=== PATIENT | male | born 1950 | race Caucasian/White ===

== ENCOUNTER → 2019-03-27 11:29 | Outpatient (BNVA) | payer MEDICARE, OTHER, SELFPAY | PROVIDERS: PCP Family Medicine; Visit Provider Family Medicine | DX: J44.9 Chronic obstructive pulmonary disease, unspecified (principal); W57.XXXA Bitten or stung by nonvenomous insect and other nonvenomous arthropods, initial encounter; E78.5 Hyperlipidemia, unspecified; L98.9 Disorder of the skin and subcutaneous tissue, unspecified | CPT/HCPCS: 80053; 80061; 85025; 86618; 86666; 86757 ==

== ENCOUNTER → 2019-08-21 15:35 | Outpatient (BNVA) | payer MEDICARE, OTHER, SELFPAY | PROVIDERS: PCP Family Medicine; Visit Provider Family Medicine | DX: R53.83 Other fatigue (principal); J20.9 Acute bronchitis, unspecified | CPT/HCPCS: 84403; 84443; 85025 ==

== ENCOUNTER → 2020-04-23 12:04 | Outpatient (BNVA) | payer MEDICARE, OTHER, SELFPAY | PROVIDERS: PCP Family Medicine; Visit Provider Family Medicine | DX: R07.89 Other chest pain (principal); F17.211 Nicotine dependence, cigarettes, in remission; Z90.2 Acquired absence of lung [part of] | CPT/HCPCS: 71046 ==

== ENCOUNTER → 2020-09-02 11:20 | Outpatient (BNVA) | payer MEDICARE, OTHER, SELFPAY | PROVIDERS: PCP Family Medicine; Visit Provider Nurse Practitioner Family | DX: M25.531 Pain in right wrist (principal) | CPT/HCPCS: 73090; 73110 ==

== ENCOUNTER → 2020-11-02 10:21 | Outpatient (BNVA) | payer MEDICARE, OTHER, SELFPAY | PROVIDERS: PCP Family Medicine; Visit Provider Nurse Practitioner Family | DX: J44.9 Chronic obstructive pulmonary disease, unspecified (principal); Z20.822 Contact with and (suspected) exposure to COVID-19 | CPT/HCPCS: 87635 ==

== ENCOUNTER → 2020-11-16 12:14 | Outpatient (BNVA) | payer MEDICARE, OTHER, SELFPAY | PROVIDERS: PCP Family Medicine; Visit Provider Family Medicine | DX: E78.5 Hyperlipidemia, unspecified (principal); R79.89 Other specified abnormal findings of blood chemistry; R07.89 Other chest pain; F41.9 Anxiety disorder, unspecified; N32.81 Overactive bladder | CPT/HCPCS: 80053; 80061; 84403; 84443 ==

== ENCOUNTER → 2020-12-09 10:04 | Outpatient (BNVA) | payer MEDICARE, OTHER, SELFPAY | PROVIDERS: PCP Family Medicine; Visit Provider Internal Medicine Pulmonary Disease | DX: R06.00 Dyspnea, unspecified (principal); E87.5 Hyperkalemia; Z20.822 Contact with and (suspected) exposure to COVID-19 | CPT/HCPCS: 80048; 87635 ==

== ENCOUNTER 2020-12-14 10:52 | Outpatient (CLI) | payer MEDICARE, OTHER, SELFPAY ==
--- NOTE | 2020-12-14 | USCV_ITS ---
Dobutamine Stress Echo Son Petersen Age: 70 Gender: M : 1950 Exam Date: 12/14/2020 13:43 Ordering Phys: Norman Lezama MD Technologist: CLARA Exam Location: [facility] [place] Indication: ARMIJO/FORMER SMOKER Rhythm: Other Patient History: Dyspnea/SOB FORMER SMOKER, LUNG REMOVAL Cardiac Medications: Medications in past 24 hours: Contrast: Optison Total Dose (mL): 8 Stress Results Protocol: Pharmacologic Peak Dose (???g/kg/min): Duration (min:sec): 9:55 Atropine:(mg) .1 Target HR: 129 Double Product: [id number] Resting HR: 67 Resting BP: 155 / 91 Peak HR: 143 Peak BP: 219 / 115 Max Predicted HR: 152 94 % Max Predicted HR Stress Summary: The hemodynamic response to stress was normal. The patient's target heart rate was achieved. BP Response: Normal Reason for Termination: The patients target heart rate was achieved Cardiac Symptoms: None ECG Analysis Resting EKG: Stress EKG: Arrhythmia: MEASUREMENTS (Male/Female) Normal Values FINDINGS 1. At the baseline, the patient's blood pressure was 155/91 mmHg with a heart rate of 68 beats per minute. The electrocardiogram showed normal sinus rhythm with normal ST-Ts. The chest examination revealed normal breath sounds with no rales or rhonchi. The CVS examination revealed normal heart sounds with no S3 or S4. 2. The Dobutamine was infused over 9 minutes 55 seconds . The patient was given a total of 1 mg of IV atropine for better heart rate response. The maximum heart rate obtained was 143 beats per minute. The patient attained 94% of the maximum predicted heart rate. The blood pressure at the end of the infusion was 199/87 mmHg. Patient did not have any chest pain or any significant electrocardiogram changes with the Dobutamine infusion. The physical examination remained unchanged. No arrhythmias were seen on the monitor. 3. At the baseline, the patient's echocardiogram revealed normal cardiac chamber sizes with normal LV ejection fraction of 65%. Segmental wall motion analysis revealed no regional wall motion abnormality. Abnormal septal motion. 4. With the low and the peak Dobutamine infusion, there was good augmentation of all the segments with no Dobutamine-induced wall motion abnormalities. 5. During the recovery phase, the patient did not have any symptoms or any EKG changes. The blood pressure at the end of the recovery phase was with a heart rate of per minute. 6. The echocardiogram during the recovery phase also did not reveal any new changes. CONCLUSIONS 1. Normal significant EKG changes with dobutamine infusion. 2. Normal echocardiographic response to Dobutamine infusion. Optison was used per protocol for the study. 3. No Dobutamine-induced chest pain. Frequent PVCs and PVCs and triplets noted during peak infusion. 4. Clinical correlation is recommended. Jing Charles MD (Electronically Signed) Final Date: 17 December 2020 14:10 S
[2020-12-14 12:57] VITALS: BMI 41.5
--- NOTE | 2020-12-14 13:04 | ECG_ITS ---
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 Interpretive Statements Name of study: Dobutamine stress echocardiogram Indication: Chest pain PROCEDURE: At the baseline, the blood pressure was 155/91 mmHg, oxygen saturation 93% with a heart rate of 68 bpm. The electrocardiogram showed sinus rhythm, normal axis. Incomplete right bundle branch block. Possible old inferior infarct. The dobutamine was infused over a period of 9 minutes 55 seconds. The maximum heart rate obtained was 143 (94% of the maximum predicted heart rate). The blood pressure at that time was 199/87 mmHg mmHg. The patient did not have any chest pain or any significant electrocardiogram changes with the dobutamine infusion. The physical examination remained unchanged. PVC triplets and frequent PVCs noted during dobutamine infusion. During the recovery phase, the patient did not have any specific symptoms. The blood pressure at the end of the recovery phase was 153/94 mmHg, oxygen saturation 90% with a heart rate of 71 beats per minute. Echocardiographic images were obtained at rest low and peak dobutamine infusion and in recovery. CONCLUSION: 1. No significant EKG changes with dobutamine infusion. 2. Normal blood pressure and heart rate response with dobutamine infusion. 3. Frequent PVC and PVCs in triplets noted at peak infusion. 4. Echocardiogram graphic images will be reported separately. Electronically Signed On 12-17-2020 13:09:10 CDT by Jing Charles M.D. [email or web address]).[email or web address] [facility].[employer]/store/OM/[id number]/[id number]
--- NOTE | 2020-12-14 13:46 | PFTS_ITS ---
Date of Study:12/14/20 Date of Dictation: MECHANICS: Forced vital capacity (FVC) is reduced. Forced expiratory volume in one second (FEV1) is reduced. FEV1/FVC is reduced. FLOW VOLUME LOOP: Reduced flow at all lung volumes with significant scooping. LUNG VOLUMES: Total lung capacity (TLC) is reduced. Residual volume (RV) is normal. DIFFUSING CAPACITY FOR CARBON MONOXIDE: Moderately reduced. INTERPRETATION: The prebronchodilator spirometry is consistent with severe to very severe obstruction. The patient also has a component of restrictive lung disease. Lung volumes are consistent with restrictive lung disease. Gas exchange (DLCO) is moderately reduced. MTDD
[2020-12-14] MEDS: DOBUTtamine 200 MG in sodium chloride 0.9% 34 ML 18 MG IV (13:49)
[2020-12-14] MEDS: atropine 0.1 mg/mL Syr 10 mL 0.5 MG IVP (13:58)
[2020-12-14] MEDS: metoprolol tartrate 1 mg/1 mL SDV 5 mL 5 MG IVP (14:05)
[2020-12-14] MEDS: perflutren protein-a microsphr 0.22 mg/mL SDV 3 mL IV (14:12)
[2020-12-14 14:15] VITALS: BP 153/94; PULSE 69
== END 2020-12-14 10:53 | disposition home or self-care (01) ==
LOC: CDL 10:59
PROVIDERS: PCP Family Medicine; Visit Provider Internal Medicine Pulmonary Disease
DX: R06.00 Dyspnea, unspecified (principal); Z87.891 Personal history of nicotine dependence; R07.9 Chest pain, unspecified; Z85.118 Personal history of other malignant neoplasm of bronchus and lung; Z98.890 Other specified postprocedural states; Z90.2 Acquired absence of lung [part of]
CPT/HCPCS: 93017; 93350; 93352; 94010; 94726; 94729; J0461; J1250; J3490; J7050; Q9956

== ENCOUNTER → 2021-10-12 14:01 | Outpatient (BNVA) | payer MEDICARE, OTHER, SELFPAY | PROVIDERS: PCP Family Medicine; Visit Provider Internal Medicine Pulmonary Disease | DX: R06.02 Shortness of breath (principal); J44.9 Chronic obstructive pulmonary disease, unspecified; G47.33 Obstructive sleep apnea (adult) (pediatric); R06.00 Dyspnea, unspecified; Z87.891 Personal history of nicotine dependence; T78.40XA Allergy, unspecified, initial encounter; R53.81 Other malaise | CPT/HCPCS: 82785; 85025; 86003 ==

== ENCOUNTER 2021-11-29 06:00 | Outpatient (RCR) | payer MEDICARE, OTHER, SELFPAY | END 2021-12-09 23:59 | disposition home or self-care (01) | LOC: TPT 06:00 | PROVIDERS: PCP Family Medicine; Visit Provider Internal Medicine Pulmonary Disease | DX: R53.81 Other malaise (principal); R06.00 Dyspnea, unspecified; J44.9 Chronic obstructive pulmonary disease, unspecified | CPT/HCPCS: 97110; 97163 ==

== ENCOUNTER 2021-12-10 06:00 | Outpatient (RCR) | payer MEDICARE, OTHER, SELFPAY | END 2022-01-09 23:59 | disposition home or self-care (01) | LOC: TPT 06:00 | PROVIDERS: PCP Family Medicine; Visit Provider Internal Medicine Pulmonary Disease | DX: R53.81 Other malaise (principal); R06.00 Dyspnea, unspecified; J44.9 Chronic obstructive pulmonary disease, unspecified | CPT/HCPCS: 97110 ==

== ENCOUNTER 2022-01-10 06:00 | Outpatient (RCR) | payer MEDICARE, SELFPAY | END 2022-02-08 23:59 | disposition home or self-care (01) | LOC: TPT 06:00 | PROVIDERS: PCP Family Medicine; Visit Provider Internal Medicine Pulmonary Disease | DX: R53.81 Other malaise (principal); R06.00 Dyspnea, unspecified; J44.9 Chronic obstructive pulmonary disease, unspecified | CPT/HCPCS: 97110 ==

== ENCOUNTER 2022-02-09 06:00 | Outpatient (RCR) | payer MEDICARE, SELFPAY | END 2022-02-28 23:59 | disposition home or self-care (01) | LOC: TPT 06:00 | PROVIDERS: PCP Family Medicine; Visit Provider Internal Medicine Pulmonary Disease | DX: R53.81 Other malaise (principal); R06.00 Dyspnea, unspecified; J44.9 Chronic obstructive pulmonary disease, unspecified | CPT/HCPCS: 97110 ==

== ENCOUNTER 2022-10-04 16:34 | Emergency (ER) | payer MEDICARE, SELFPAY ==
[2022-10-04 17:00] VITALS: BP 170/97; PULSE 94; RESP 14; TEMP 37.1; O2SAT 95; BMI 40.1
--- NOTE | 2022-10-04 17:16 | XRR_ITS ---
PROCEDURE INFORMATION: Exam: XR Chest Exam date and time: 10/04/2022 5:21 PM Age: 71 years old Clinical indication: Other: Afib; Prior surgery; Surgery date: 6+ months; Surgery type: Lung removal 2002; Additional info: New onset a fib TECHNIQUE: Imaging protocol: Radiologic exam of the chest. Views: 1 view. COMPARISON: CT chest con [id number] 03/02/2021 8:37 AM FINDINGS: Lungs: Left pneumonectomy with complete opacification of the left hemithorax. Right upper lobe calcified granuloma. The right lung is otherwise clear with emphysematous changes. Pleural spaces: Unremarkable. No pleural effusion. No pneumothorax. Heart/Mediastinum: Leftward deviation of the heart and mediastinum. Numerous mediastinal clips. Bones/joints: Unremarkable. XR/XR chest 1V portable [id number] IMPRESSION: No acute findings.
[2022-10-04 18:04] VITALS: BP 159/121; PULSE 89; RESP 20; O2SAT 95
--- NOTE | 2022-10-04 18:06 | ECG_ITS ---
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 Measurements Intervals [place] Rate: 89 P: 0 IA: 0 QRS: 50 QRSD: 121 T: -8 QT: 402 QTc: 490 Interpretive Statements ATRIAL FIBRILLATION WITH ABERRANT CONDUCTION OR VENTRICULAR PREMATURE COMPLEXES RIGHT BUNDLE BRANCH BLOCK [120+ ms QRS DURATION, UPRIGHT V1, 40+ ms S IN I/aVL/V4/V5/V6] No previous ECG available for comparison Electronically Signed On 10-04-2022 20:31:32 CDT by Shanta Lainez M.D. [email or web address] hospital [place].CLARED/store/OM/[id number]/[id number]
--- NOTE | 2022-10-04 18:25 | W.ED.GENADLT ---
HPI - General Adult General: Chief complaint: General Medical Stated complaint: afib Time Seen by Provider: 10/04/22 17:16 History of Present Illness: Presents to the ER from his family physician's office for swelling of his legs and new onset atrial fibrillation. Over the past month patient has noticed his bilateral lower extremities have become edematous and has become more short of breath tired fatigued than normal. To the point of getting dizzy if he moves gets up or down too fast. Patient has left lung removed back in 2002 and has had to wear 2 L of oxygen as needed since then. Patient denies any symptoms at this time other than the swelling and the fatigue. Patient is in no pain. Patient arrived on room air satting 88% on 2 L his sat went up to 96%. Patient is lying in bed comfortably Review of Systems General: Reports: 10 or more systems reviewed and unremarkable except in HPI and below PFSH ED PFSH: Medical History COPD (chronic obstructive pulmonary disease) Diverticulosis History of lung cancer Hyperlipidemia Obstructive sleep apnea treated with BiPAP Surgical History H/O arthroscopic knee surgery History of pneumonectomy Family History Other Cancer Social History Smoking and tobacco status: former smoker Quit status (tobacco): has quit using tobacco Year quit tobacco: 2002 Former quit date comment: 1.5-2ppd x 30 years Second hand smoke exposure: Yes Alcohol intake: current Alcohol intake frequency: holidays/special occasions only Substance/Drug Use: never Household members: spouse Marital status: Physical Exam Const: COMMON NORMALS: no acute distress, average body habitus, patient oriented x3, no limitations, healthy appearing, alert and well nourished HENMT: COMMON NORMALS: normocephalic, atraumatic, hearing grossly normal bilaterally, external ears normal, Normal external nose present and moist oral mucous membranes HEAD & SCALP: normocephalic and atraumatic NOSE: Normal external nose present EXTERNAL EAR: Yes external ears normal Eye: COMMON NORMALS: Equal, round and reactive pupils present, EOMs intact bilaterally, conjunctivae normal and no scleral icterus CONJUNCTIVA: Yes conjunctivae normal PUPIL: Yes Equal, round and reactive pupils present Neck/C-Spine: COMMON NORMALS: full ROM, no lymphadenopathy, supple, no meningeal signs, no JVD and Thyroid normal THYROID: Thyroid normal Chest: COMMONS NORMALS: normal inspection of the chest and normal palpation of entire chest wall Resp: COMMON NORMALS: normal respiratory effort, No retractions, No use of accessory muscles and clear to auscultation bilaterally (On the right side) AUSCULTATION: clear to auscultation bilaterally (On the right side) Cardio: COMMON NORMALS: no JVD, regular rate, S1 normal heart sound present and No gallops present (Cardio); negative for regular rhythm (Irregularly irregular rhythm) RATE: regular rate RHYTHM: abnormal rhythm (Irregularly irregular rhythm) HEART SOUNDS: S1 normal heart sound present GI: COMMON NORMALS: Normal to inspection, nondistended, normoactive bowel sounds present, Soft to palpation, non-tender, No hepatosplenomegaly present and no masses PALPATION: Yes Soft to palpation and Yes No hepatosplenomegaly present : COMMON NORMALS: Yes no CVA tenderness BLADDER/KIDNEY EXAM: Yes no CVA tenderness Back/Pelvis: COMMON NORMALS: no CVA tenderness Extremity: NARRATIVE EXTREMITY EXAM: 1-2+ pitting edema bilateral lower pretibial region. Neuro: COMMON NORMALS: patient oriented x3 SENSORIUM/ORIENTATION: Yes alert MENINGEAL SIGNS: Yes no meningeal signs Course Vital Signs: Vital signs: Vital Signs Temperature 98.7 F 10/04/22 17:00 Pulse Rate 85 10/04/22 20:00 Respiratory Rate 21 H 10/04/22 20:00 Blood Pressure 167/119 10/04/22 20:00 Pulse Oximetry 98 10/04/22 20:00 Oxygen Delivery Me thod Room Air 10/04/22 17:00 MDM - General Adult Medical Decision Making Presents to the ER with new onset A-fib. Physical exam was performed lab work was obtained. EKG did show A-fib in both EKGs. Otherwise lab work was essentially benign. Patient be started on Xarelto and a consult for case management to referral for cardiology. Patient be discharged home Differential Diagnosis New onset A-fib, CHF, edema Medical Records I reviewed the patient's medical records. Lab Data I reviewed the patient's lab results. 10/04/22 18:02 10/04/22 18:02 Radiology Impressions Chest X-Ray 10/04/22 17:16 IMPRESSION: No acute findings. Laboratory Results WBC 5.1 10^3/uL (4.0-10.0) 10/04/22 18:02 RBC 5.09 10^6/uL (4.1-5.3) 10/04/22 18:02 Hgb 15.1 g/dL (11.7-16.6) 10/04/22 18:02 Hct 49.7 % (42.0-52.0) 10/04/22 18:02 MCV 97.6 fl (80-94) H 10/04/22 18:02 MCH 29.7 pg (28.0-34.0) 10/04/22 18:02 MCHC 30.4 g/dL (30.0-36.0) 10/04/22 18:02 RDW 14.6 % (12.1-15.1) 10/04/22 18:02 Plt Count 131 10^3/cmm (130-400) 10/04/22 18:02 MPV 10.8 fL (7.4-10.4) H 10/04/22 18:02 Neut % (Auto) 65.1 % 10/04/22 18:02 Lymph % (Auto) 19.6 % 10/04/22 18:02 [place] % (Auto) 10.7 % 10/04/22 18:02 Eos % (Auto) 3.4 % 10/04/22 18:02 Baso % (Auto) 0.8 % 10/04/22 18:02 Neut # (Auto) 3.30 10^3/uL (1.8-7.7) 10/04/22 18:02 Lymph # (Auto) 1.0 10^3/uL (0.8-4.8) 10/04/22 18:02 Churchill # (Auto) 0.5 10^3/uL (0.2-0.9) 10/04/22 18:02 Eos # (Auto) 0.2 10^3/uL (0.0-0.8) 10/04/22 18:02 Baso # (Auto) 0.0 10^3/uL (0.0-0.1) 10/04/22 18:02 Nucleated RBC % (auto) 0 % 10/04/22 18: Nucleated RBCs # 0.0 /100WBC 10/04/22 18:02 PT 13.60 SECONDS (12.1-14.9) 10/04/22 18:02 INR 1.01 (0.8-1.2) 10/04/22 18:02 Sodium 138 mmol/L (136-145) 10/04/22 18:02 Potassium 4.6 mmol/L (3.5-5.1) 10/04/22 18:02 Chloride 104 mmol/L (98-107) 10/04/22 18:02 Carbon Dioxide 25 mmol/L (22-29) 10/04/22 18:02 Anion Gap 13.6 (5-19) 10/04/22 18:02 BUN 13 mg/dL (8-23) 10/04/22 18:02 Creatinine 0.9 mg/dL (0.7-1.2) 10/04/22 18:02 GFR Calculation 83.7 mL/min (90-130) L 10/04/22 18:02 Glucose 96 mg/dL (65-115) 10/04/22 18:02 Calculated Osmolality 286 mOsm/kg (285-295) 10/04/22 18:02 Calcium 8.6 mg/dL (8.5-10.5) 10/04/22 18:02 Magnesium 1.9 mg/dL (1.7-2.3) 10/04/22 18:02 Total Bilirubin 0.9 mg/dL (0.15-1.2) 10/04/22 18:02 AST 28 U/L (0-40) 10/04/22 18:02 ALT 20 U/L (0-41) 10/04/22 18:02 Alkaline Phosphatase 112 U/L (40-130) 10/04/22 18:02 Troponin T Baseline 18 ng/L (0-15) H 10/04/22 18:02 Troponin T 120 Minute 18.99 ng/L (0-15) H 10/04/22 20:06 Delta Troponin T 0.99 ABS# (0-10) 10/04/22 20:06 NT-Pro-B Natriuret Pep 2167 pg/mL (0-125) H 10/04/22 18:02 Total Protein 6.9 g/dL (6.6-8.7) 10/04/22 18:02 Albumin 3.6 g/dL (3.5-5.2) 10/04/22 18:02 Globulin 3.3 g/dL (1.3-4.6) 10/04/22 18:02 TSH 2.43 uIU/mL (0.27-4.20) 10/04/22 18:02 Urine Color Yellow (Yellow) 10/04/22 18:02 Urine Appearance Clear (CLEAR) 10/04/22 18:02 Urine pH 7 (5-7) 10/04/22 18:02 Ur Specific [place] 1.015 (1.005-1.030) 10/04/22 18:02 Urine Protein Trace (Negative) 10/04/22 18:02 Urine Glucose (UA) Norm (Normal) 10/04/22 18:02 Urine Ketones Negative (Negative) 10/04/22 18:02 Urine Blood Neg (Negative) 10/04/22 18:02 Urine Nitrate Negative (Negative) 10/04/22 18:02 Urine Bilirubin Neg (Negative) 10/04/22 18:02 Urine Urobilinogen Norm mg/dL (Negative) 10/04/22 18:02 Ur Leukocyte Esterase Negative (Negative) 10/04/22 18:02 Urine RBC 0-4 /hpf (0-2) H 10/04/22 18:02 Urine WBC 0-4 /hpf (0-5) H 10/04/22 18:02 Ur Squamous Epith Cells 0-4 /hpf (0-5) H 10/04/22 18:02 Amorphous Sediment Not Reportable 10/04/22 18:02 Urine Bacteria None /hpf (NONE) 10/04/22 18:02 Urine Mucus 1+ /hpf 10/04/22 18:02 Urine Opiates Screen Negative ng/mL (Negative) 10/04/22 18:02 Ur Barbiturates Screen Negative ng/mL (Negative) 10/04/22 18:02 Ur Phencyclidine Scrn Negative ng/mL (Negative) 10/04/22 18:02 Ur Amphetamines Screen Negative ng/mL (Negative) 10/04/22 18:02 U Benzodiazepines Scrn Negative ng/mL (Negative) 10/04/22 18:02 Urine Cocaine Screen Negative ng/mL (Negative) 10/04/22 18:02 U Marijuana (THC) Screen Negative ng/mL (Negative) 10/04/22 18:02 EKG Data EKG 1: I personally reviewed and interpreted this EKG as follows: EKG interpretation date: 10/04/22 EKG interpretation time: 18:06 Prior EKG tracings: not available for review Interpretation: EKG shows atrial fibrillation with aberrant conduction or ventricular premature complexes, right bundle branch block, ventricular rate of 89 bpm, QRS duration 121, QTc of 449, Computer generated interpretation: Chest X-Ray 10/04/22 17:16 IMPRESSION: No acute findings. Discharge Plan Discharge Patient Disposition: Home Clinical Impression: Atrial fibrillation Qualifiers: Atrial fibrillation type: unspecified Qualified Code(s): I48.91 - Unspecified atrial fibrillation Condition: Stable Prescriptions: New Xarelto 20 mg tablet 20 mg PO DAILY Qty: 30 0RF Rx Instructions: must administer with evening meal No Action testosterone cypionate 200 mg/mL kit 200 mg IM .monthly Qty: 1 5RF aspirin [Adult Low Dose Aspirin] 81 mg tablet,delayed release (DR/EC) 81 mg PO QDAY Trelegy Ellipta 100-62.5-25 mcg blister with device 1 inh INHALATION QDAY Qty: 90 2RF valsartan-hydrochlorothiazide [Diovan HCT] 160-25 mg tablet 1 tab PO DAILY Qty: 30 3RF albuterol sulfate 2.5 mg /3 mL (0.083 %) solution for nebulization 2.5 mg INHALATION QID PRN (Reason: shortness of breath or wheezing) Qty: 180 5RF clonazepam 0.5 mg tablet 0.5 mg PO DAILY PRN (Reason: anxiety) Qty: 30 1RF montelukast [Singulair] 10 mg tablet 10 mg PO DAILY Qty: 30 11RF albuterol sulfate [Ventolin HFA] 90 mcg/actuation HFA aerosol inhaler 2 puff INHALATION QID PRN (Reason: shortness of breath or wheezing) Qty: 8.5 3RF solifenacin 10 mg tablet See Rx Instructions .ROUTE .COMPLEX Qty: 30 0RF Dose Instruction: Take 1 tablet by mouth once daily Rx Instructions: Take 1 tablet by mouth once daily Discharge Orders: Discharge ED (Routine); Ordered 10/04/22 Ordered By: Freddy Díaz Referrals: Nelsy Rivas MD [Primary Care Provider] - 1 week Patient Instructions: A-fib (Atrial Fibrillation) (ED) Activity Restrictions/Additional Instructions: Please take all medicine as prescribed. You have been referred to case management to set you up an appointment with cardiology. They should be calling you sometime tomorrow or the next day. If you not heard from them by Sunday please give them a call. 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
[2022-10-04 18:27] LABS: Add Urine Microscopic? YES; Amphetamines Screen Urine Negative (Negative); Barbiturates Screen Urine Negative (Negative); Benzodiazepines Screen Urine Negative (Negative); Bilirubin Urine Neg (Negative); Blood Urine Neg (Negative); Cocaine Screen Urine Negative (Negative); Glucose Urine UA Norm (Normal); Ketones Urine Negative (Negative); Leukocyte Esterase Urine Negative (Negative); Nitrate Urine Negative (Negative); Opiate Screen Urine Negative (Negative); PCP Screen Urine Negative (Negative); Protein Urine Trace (Negative); Specific Gravity, Urine 1.015 (1.005-1.030); THC Screen Urine Negative (Negative); Urine Appearance Clear (CLEAR); Urine Color Yellow (Yellow); Urobilinogen Urine Norm (Negative); pH Urine 7 (5-7)
[2022-10-04 18:28] LABS: Add Urine Culture? No; Basophils % 0.8 %; Eosinophils # 0.2 10^3/uL (0.0-0.8); Eosinophils % 3.4 %; Hematocrit 49.7 % (42.0-52.0); Hemoglobin 15.1 g/dL (11.7-16.6); Lymphocytes % 19.6 %; Mean Corpuscular HGB Conc 30.4 g/dL (30.0-36.0); Mean Corpuscular Hemoglobin 29.7 pg (28.0-34.0); Mean Corpuscular Volume 97.6 fl (80-94); Mean Platelet Volume 10.8 fL (7.4-10.4); Monocytes # 0.5 10^3/uL (0.2-0.9); Monocytes % 10.7 %; Mucus Urine 1+ /hpf; Neutrophils % 65.1 %; Nucleated Red Blood Cells % 0 %; Platelet Count 131 10^3/cmm (130-400); RBC Urine 0-4 /hpf (0-2); Red Blood Count 5.09 10^6/uL (4.1-5.3); Red Cell Distribution Width 14.6 % (12.1-15.1); Squamous Epithelial Cell Urine 0-4 /hpf (0-5); WBC Urine 0-4 /hpf (0-5); White Blood Count 5.1 10^3/uL (4.0-10.0)
[2022-10-04 18:35] LABS: INR 1.01 (0.8-1.2)
[2022-10-04 18:44] LABS: Troponin(5th) Baseline 18 ng/L (0-15)
[2022-10-04 18:52] LABS: Alanine Aminotransferase 20 U/L (0-41); Albumin Level 3.6 g/dL (3.5-5.2); Alkaline Phosphatase 112 U/L (40-130); Anion Gap 13.6 (5-19); Aspartate Amino Transferase 28 U/L (0-40); Blood Urea Nitrogen 13 mg/dL (8-23); Calcium 8.6 mg/dL (8.5-10.5); Carbon Dioxide 25 mmol/L (22-29); Chloride 104 mmol/L (98-107); Globulin 3.3 g/dL (1.3-4.6); Glomerular Filtration Rate 83.7 mL/min (90-130); Glucose 96 mg/dL (65-115); Magnesium 1.9 mg/dL (1.7-2.3); NT Pro B Type Natriuretic Pept 2167 pg/mL (0-125); Osmolality Calculated 286 mOsm/kg (285-295); Potassium 4.6 mmol/L (3.5-5.1); Sodium 138 mmol/L (136-145); Thyroid Stimulating Hormone 2.43 uIU/mL (0.27-4.20); Total Bilirubin 0.9 mg/dL (0.15-1.2); Total Protein 6.9 g/dL (6.6-8.7)
[2022-10-04 19:00] VITALS: BP 162/118; PULSE 83; RESP 27; O2SAT 94
[2022-10-04 20:00] VITALS: BP 167/119; PULSE 85; RESP 21; O2SAT 98
[2022-10-04 20:38] LABS: Troponin 5 2HR 18.99 ng/L (0-15)
[2022-10-04 20:41] LABS: Troponin 5 2HR Delta 0.99 ABS# (0-10)
[2022-10-04] MEDS: rivaroxaban 10 mg Tablet 20 MG PO (21:20)
[2022-10-04 21:25] VITALS: BP 164/113; PULSE 82; RESP 23; O2SAT 96
--- NOTE | 2022-10-05 05:47 | DCPLANNER ---
Addendum entered by Alice Baumann 11/06/22 16:03: Patient attended appointment scheduled with heart care Addendum entered by Alice Baumann 10/09/22 07:25: Patient has a follow up appointment scheduled for Sunday, November 01, 2022 at 9:[address] Charles at [facility]. Original Note: manager telemetry had message to schedule a follow up appointment for patient with cardiology. manager telemetry sent patients information to the front office staff at [facility]. Patients information will be printed and reviewed. Clinic will call patient with appointment information.
== END 2022-10-04 21:28 | disposition home or self-care (01) ==
PROVIDERS: Emergency Provider Emergency Medicine; PCP Family Medicine
DX: I48.91 Unspecified atrial fibrillation (principal); I45.10 Unspecified right bundle-branch block; J44.9 Chronic obstructive pulmonary disease, unspecified; E78.5 Hyperlipidemia, unspecified; G47.33 Obstructive sleep apnea (adult) (pediatric); Z79.899 Other long term (current) drug therapy
CPT/HCPCS: 36415; 71045; 80053; 80061; 80306; 81001; 83735; 83880; 84403; 84443; 84484; 85025; 85610; 93005; 99285; G0103

== ENCOUNTER → 2022-10-16 10:08 | Outpatient (BNVA) | payer MEDICARE, SELFPAY | PROVIDERS: PCP Family Medicine; Visit Provider Surgery | DX: Z12.11 Encounter for screening for malignant neoplasm of colon (principal); Z12.12 Encounter for screening for malignant neoplasm of rectum | CPT/HCPCS: 99024; 99203 ==

== ENCOUNTER 2022-10-23 15:39 | Outpatient (CLI) | payer MEDICARE, SELFPAY ==
--- NOTE | 2022-10-23 17:00 | CT_ITS ---
WS: [id number] LDCT LUNG CANCER SCREENING HISTORY: Z85.118 - Personal history of other malignant neoplasm TECHNIQUE: Axial imaging performed from the apices to 1 cm below the costophrenic angles. Coronal and sagittal reformats are submitted with axial MIP series. All CT scans at [facility] use at least one of these dose optimization techniques: automated exposure control; mA and/or kV adjustment per patient size (includes targeted exams where dose is matched to clinical indication); or iterativ e reconstruction. DLP: 151.60 mGy.cm DIvol: Mean CTDIvol: 3.70 (mGy) COMPARISON: 03/02/2021 Diagnostic quality: Satisfactory Lungs: Patient is status post left pneumonectomy. Post pneumonectomy pleural fluid collection is billy lar in size compared to 03/01/2021. No pulmonary nodule or mass noted in the right lung. Benign granu yovany right upper lobe. No endobronchial lesions are identified. Numerous surgical clips are noted at the left hilum from the prior pneumonectomy. Heart: Mild enlargement of the heart. Heart is deviated to the left due to volume loss in the left th orax.. Other findings: Mild enlargement of the pulmonary artery. Mild gynecomastia. No mediastinal or hilar adenopathy identified on this unenhanced exam. No adrenal mass. Increase in thoracic kyphosis. Mild d egenerative disc disease and thoracic osteophytosis. IMPRESSION: CT/CT lung screening [id number] LUNG-RADS: 2-Benign Appearance or Behavior FOLLOW UP: 12 Month: Continue annual screening with LDCT OTHER FINDINGS (S MODIFIER): None.
== END 2022-10-23 15:40 | disposition home or self-care (01) ==
LOC: RAD 15:40
PROVIDERS: PCP Family Medicine; Visit Provider Family Medicine
DX: Z85.118 Personal history of other malignant neoplasm of bronchus and lung (principal); Z12.2 Encounter for screening for malignant neoplasm of respiratory organs
CPT/HCPCS: 71271

== ENCOUNTER → 2022-11-01 09:19 | Outpatient (BNVA) | payer MEDICARE, SELFPAY | PROVIDERS: PCP Family Medicine; Visit Provider Internal Medicine Cardiovascular Disease | DX: R60.9 Edema, unspecified (principal); I10 Essential (primary) hypertension; R06.09 Other forms of dyspnea; I48.91 Unspecified atrial fibrillation; Z87.891 Personal history of nicotine dependence; E78.5 Hyperlipidemia, unspecified; G47.33 Obstructive sleep apnea (adult) (pediatric); J44.9 Chronic obstructive pulmonary disease, unspecified; Z79.01 Long term (current) use of anticoagulants | CPT/HCPCS: 99204 ==

== ENCOUNTER → 2022-11-07 08:46 | Outpatient (BNVA) | payer MEDICARE, SELFPAY | PROVIDERS: PCP Family Medicine; Visit Provider Internal Medicine Cardiovascular Disease | DX: I48.91 Unspecified atrial fibrillation (principal); R07.89 Other chest pain; R60.9 Edema, unspecified | CPT/HCPCS: 80048; 83735; 83880 ==

== ENCOUNTER 2022-11-20 12:00 | Outpatient (CLI) | payer MEDICARE, SELFPAY | END 2022-11-20 12:01 | disposition home or self-care (01) | LOC: SLEEP 12-04 08:09 | PROVIDERS: PCP Family Medicine; Visit Provider Internal Medicine Pulmonary Disease | DX: G47.33 Obstructive sleep apnea (adult) (pediatric) (principal); R53.83 Other fatigue | CPT/HCPCS: 94762 ==

== ENCOUNTER 2022-11-20 12:54 | Outpatient (CLI) | payer MEDICARE, SELFPAY ==
--- NOTE | 2022-11-20 12:30 | USCV_ITS ---
Son Petersen Age: 71 Gender: M : 1950 Exam Date: 11/20/2022 13:12 Ordering Phys: Jing Charles MD ([email or web address]) Technologist: Thalia Hughes Exam Location: [facility] [place] Indication: a fib BP: 110 / 75 HR: 72 Rhythm: Atrial fibrillation Technical Quality: Adequate MEASUREMENTS (Male / Female) Normal Values 2D ECHO LV Diastolic Diameter PLAX 4.5 cm 4.2 - 5.9 / 3.9 - 5.3 cm LV Systolic Diameter PLAX 3.1 cm IVS Diastolic Thickness 0.9 cm 0.6 - 1.0 / 0.6 - 0.9 cm IVS Systolic Thickness 1.5 cm LVPW Diastolic Thickness 1.3 cm 0.6 - 1.0 / 0.6 - 0.9 cm LVPW Systolic Thickness 1.9 cm LVOT Diameter 2.1 cm LV Ejection Fraction 2D Teich 60.3 % LV Ejection Fraction MOD 2C 64.9 % LV Ejection Fraction 2C AL 66.2 % LA Diameter 5.5 cm LA Width 3.8 cm LA Height 6.1 cm RA Width 3.2 cm RA Height 6.2 cm Aorta at Sinotubular Diameter 2.7 cm M-MODE Aortic Annulus Diameter 2.9 cm LA Ao Ratio MM 1.9 MV E Point Septal Separation 0.5 cm DOPPLER AV Peak Velocity 105.0 cm/s LVOT Peak Velocity 81.0 cm/s AV Area Cont Eq vti 2.2 cm squared AV Area Cont Eq pk 2.7 cm squared MV Peak Velocity 113.0 cm/s MV Area PHT 5.4 cm squared Mitral E to A Ratio 6.1 MV E' Velocity 60.0 cm/s Mitral E to MV E' Ratio 7.8 Mitral E to LV E' Lateral Ratio 6.9 Mitral E to LV E' Septal Ratio 9.0 TR Peak Velocity 157.0 cm/s TR Peak Gradient 9.9 mmHg Right Atrial Pressure 5.0 mmHg Pulmonary Artery Systolic Pressu 14.9 mmHg PV Peak Velocity 84.0 cm/s RV Acceleration Time 0.1 s RV Ejection Time 0.3 s RV AcT/ET 0.5 FINDINGS Left Ventricle Normal left ventricular size, systolic function and wall thickness, with no regional wall motion abnormalities. Left ventricular ejection fraction is estimated at 60 %. Right Ventricle Normal right ventricular size and systolic function. Right ventricular systolic pressure 14.9 mmHg. Right Atrium Normal right atrial size. Left Atrium Mildly increased left atrial size. Mitral Valve Mildly thickened mitral valve. No mitral valve stenosis. Mild mitral valve regurgitation. Aortic Valve Structurally normal trileaflet aortic valve. No aortic valve stenosis. No aortic valve regurgitation. Tricuspid Valve Structurally normal tricuspid valve. No tricuspid valve stenosis. Trace to mild tricuspid valve regurgitation. Pulmonic Valve Structurally normal pulmonic valve. No pulmonary valve stenosis. No pulmonary valve regurgitation. Pericardium No pericardial effusion. Aorta Normal size aortic root and proximal ascending aorta. IVC Inferior vena cava not visualized. CONCLUSIONS 1. Normal left ventricular size, systolic function and wall thickness, with no regional wall motion abnormalities. Left ventricular ejection fraction is estimated at 60 %. 2. Mild mitral valve regurgitation. 3. No prior similar studies to compare. Jing Charles MD (Electronically Signed) Final Date: 26 November 2022 08:01 S
== END 2022-11-20 12:55 | disposition home or self-care (01) ==
LOC: RAD 12:55
PROVIDERS: PCP Family Medicine; Visit Provider Internal Medicine Cardiovascular Disease
DX: I48.91 Unspecified atrial fibrillation (principal); I10 Essential (primary) hypertension; I34.0 Nonrheumatic mitral (valve) insufficiency
CPT/HCPCS: 93306

== ENCOUNTER 2022-12-25 14:37 | Outpatient (CLI) | payer MEDICARE, SELFPAY ==
--- NOTE | 2022-12-25 14:47 | XRR_ITS ---
PROCEDURE INFORMATION: Exam: XR Right Hip Exam date and time: 12/25/2022 3:06 PM Age: 72 years old Clinical indication: Pain and injury or trauma; Fall; Blunt trauma (contusions or hematomas); Hip pain; Right hip; Injury date: 12/23/22; Injury details: HX of lung cancer; Additional info: M25.551 - pain in right hip TECHNIQUE: Imaging protocol: Radiologic exam of the right hip. Views: 1 view hip with pelvis when performed. COMPARISON: No relevant prior studies available. FINDINGS: Bones/joints: Mild hip DJD. No fracture is seen. Soft tissues: Unremarkable. XR/XR hip RT 2-3V wo/w pel* [id number] IMPRESSION: No acute findings.
== END 2022-12-25 14:38 | disposition home or self-care (01) ==
LOC: RAD 14:40
PROVIDERS: PCP Family Medicine; Visit Provider Family Medicine
DX: M25.551 Pain in right hip (principal)
CPT/HCPCS: 73502

== ENCOUNTER → 2023-01-24 14:25 | Outpatient (BNVA) | payer MEDICARE, SELFPAY | PROVIDERS: PCP Family Medicine; Visit Provider Internal Medicine Cardiovascular Disease | DX: I11.0 Hypertensive heart disease with heart failure (principal); I50.30 Unspecified diastolic (congestive) heart failure; R60.9 Edema, unspecified; E78.5 Hyperlipidemia, unspecified; G47.33 Obstructive sleep apnea (adult) (pediatric); J44.9 Chronic obstructive pulmonary disease, unspecified; Z87.891 Personal history of nicotine dependence | CPT/HCPCS: 99214 ==

== ENCOUNTER → 2023-07-10 16:02 | Outpatient (BNVA) | payer MEDICARE, SELFPAY | PROVIDERS: PCP Family Medicine; Visit Provider Family Medicine | DX: I10 Essential (primary) hypertension (principal); E78.5 Hyperlipidemia, unspecified; R53.83 Other fatigue; R07.89 Other chest pain; Z78.9 Other specified health status; R79.89 Other specified abnormal findings of blood chemistry; Z12.5 Encounter for screening for malignant neoplasm of prostate; Z79.899 Other long term (current) drug therapy | CPT/HCPCS: 80053; 80061; 84403; 84443; 85025; G0103 ==

== ENCOUNTER 2023-07-31 13:20 | Emergency (ER) | payer MEDICARE, SELFPAY ==
[2023-07-31 13:25] VITALS: BP 133/85; PULSE 84; RESP 16; TEMP 36.6; O2SAT 96
--- NOTE | 2023-07-31 13:26 | ECG_ITS ---
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 Measurements Intervals [place] Rate: 93 P: 0 TX: 0 QRS: 47 QRSD: 129 T: -16 QT: 382 QTc: 477 Interpretive Statements ATRIAL FIBRILLATION RIGHT BUNDLE BRANCH BLOCK [120+ ms QRS DURATION, UPRIGHT V1, 40+ ms S IN I/aVL/V4/V5/V6] Compared to ECG 10/04/2022 18:06:35 Ventricular premature complex(es) no longer present Aberrant conduction of supraventricular beat(s) no longer present Electronically Signed On 08-01-2023 0:23:44 CDT by Shanta Lainez M.D. [email or web address]/store/NU/[id number]
--- NOTE | 2023-07-31 13:31 | XRR_ITS ---
PROCEDURE INFORMATION: Exam: XR Chest Exam date and time: 07/31/2023 1:53 PM Age: 72 years old Clinical indication: Shortness of breath; Prior surgery; Surgery date: 6+ months; Surgery type: Left lung; Patient HX: Pulse dropped TECHNIQUE: Imaging protocol: Radiologic exam of the chest. Views: 1 view. COMPARISON: CT lung screening [id number] 10/23/2022 4:00 PM FINDINGS: Lungs: Prior left-sided pneumonectomy. No focal consolidation on the right. Pleural spaces: No evidence of pneumothorax on the right. No evidence of pleural effusion on the right. Heart/Mediastinum: Postsurgical changes of the mediastinum and leftward mediastinal deviation related to volume loss on the left. Bones/joints: No evidence of acute osseous abnormality. XR/XR chest 1V portable [id number] IMPRESSION: 1. Right lung is grossly clear. If there is clinical concern for acute mediastinal pathology, consider correlation with CT.
--- NOTE | 2023-07-31 13:32 | W.ED.SOB ---
HPI - SOB/Dyspnea General: Chief Complaint: Shortness of Breath/Dyspnea Stated Complaint: PULSE DROPPED Time Seen by Provider: 07/31/23 13:26 [facility] PFSH: Medical History (Updated 07/10/23 @ 15:58 by Elizabeth Irvin LPN, RT) Enrolled in chronic care management Diverticulosis Hyperlipidemia Obstructive sleep apnea treated with BiPAP COPD (chronic obstructive pulmonary disease) History of lung cancer Surgical History History of esophagogastroduodenoscopy (EGD) Hx of colonoscopy 2007 History of pneumonectomy H/O arthroscopic knee surgery Family History Family/Other Myocardial infarction Stroke Hypertension Grandmother Stroke Other Cancer Social History Smoking and tobacco/nicotine status: former use of tobacco/nicotine Quit status (tobacco/nicotine): has quit using Year quit tobacco: 2002 Former quit date comment: 1.5-2ppd x 30 years Second hand smoke exposure: Yes Alcohol intake: current Alcohol intake frequency: holidays/special occasions only Substance/Drug Use: never Household members: spouse Marital status: Course Vital Signs: Vital signs: Vital Signs Temperature 97.8 F 07/31/23 13:25 Pulse Rate 84 07/31/23 13:25 Respiratory Rate 16 07/31/23 13:25 Blood Pressure 133/85 07/31/23 13:25 Pulse Oximetry 96 07/31/23 13:25 Oxygen Delivery Me thod Nasal Cannula 07/31/23 13:25 Oxygen Flow Rate 4 07/31/23 13:25 Discharge Plan Discharge Condition: Stable Prescriptions: No Action aspirin [Adult Low Dose Aspirin] 81 mg tablet,delayed release (DR/EC) 81 mg PO QDAY testosterone cypionate 200 mg/mL kit 200 mg IM .monthly Qty: 1 5RF Multiple Vitamins PO furosemide 40 mg tablet 40 mg PO DAILY Qty: 90 3RF potassium chloride 20 mEq tablet extended release 20 meq PO DAILY Qty: 90 2RF Trelegy Ellipta 100-62.5-25 mcg blister with device 1 inh INHALATION QDAY Qty: 180 3RF montelukast [Singulair] 10 mg tablet 10 mg PO DAILY Qty: 90 3RF sulfamethoxazole-trimethoprim [Bactrim DS] 800-160 mg tablet 1 tab PO BID Qty: 20 0RF valsartan 320 mg tablet 320 mg PO DAILY Qty: 90 3RF albuterol sulfate 2.5 mg /3 mL (0.083 %) solution for nebulization 2.5 mg INHALATION QID PRN (Reason: shortness of breath or wheezing) Qty: 180 5RF clonazepam 0.5 mg tablet 0.5 mg PO DAILY PRN (Reason: anxiety) Qty: 30 1RF albuterol sulfate [Ventolin HFA] 90 mcg/actuation HFA aerosol inhaler 2 puff INHALATION QID PRN (Reason: shortness of breath or wheezing) Qty: 8.5 3RF mupirocin 2 % ointment 1 applic topical BID Qty: 22 0RF Xarelto 20 mg tablet 20 mg PO DAILY Qty: 30 3RF Rx Instructions: must administer with evening meal Referrals: Nelsy Rivas MD [Primary Care Provider] - Coding Level of Care Code ED Cost Report Clerk for Susan Kauffman
[2023-07-31 13:45] LABS: ABG PH Result 7.32 (7.35-7.45); Arterial Blood Gas Hematocrit 50.6 % (42-52); Base Excess ABG 3.3 mmol/L (-2.0-2.0); Blood Gas Allen Test Pos; Blood Gas Operator Identificat WALCI; Blood Gas Sample Site Radial, right; Blood Gas Sample Type Arterial; HCO3 ABG 31.6 mmol/L (22-26); HGB O2 Sat 96.6 % (95-100); Ionized Calcium Level - ABG 1.2 mmol/L (1.1-1.4); Methemoglobin 0.6 % (0.4-1.5); Oxygen Device NC; Oxygen Saturation ABG 99.2; Potassium Level - ABG 4.2 mmol/L (3.5-5.0); Total Hemoglobin 16.5 g/dL (14-18)
[2023-07-31 13:46] LABS: ABG PCO2 61.2 mmHg (35-45)
[2023-07-31 13:47] LABS: Basophils % 0.5 %; Eosinophils # 0.2 10^3/uL (0.0-0.8); Eosinophils % 1.8 %; Hematocrit 50.5 % (37-53); Lymphocytes # 0.8 10^3/uL (0.8-4.8); Lymphocytes % 9.7 %; Mean Corpuscular HGB Conc 31.5 g/dL (30-55); Mean Corpuscular Volume 98.4 fl (82-101); Mean Platelet Volume 9.9 fL (7.4-10.4); Monocytes # 0.9 10^3/uL (0.2-0.9); Monocytes % 10.1 %; Neutrophils # 6.59 10^3/uL (1.8-7.7); Neutrophils % 77.7 %; Nucleated Red Blood Cells % 0 %; Platelet Count 182 10^3/cmm (157-399); Red Blood Count 5.13 10^6/uL (3.85-5.65); Red Cell Distribution Width 13.7 % (12.1-15.1); White Blood Count 8.48 10^3/uL (3.29-11.43)
[2023-07-31] MEDS: methylPREDNISolone sod succ 125 mg/2 mL INJ IVP (13:49)
[2023-07-31] MEDS: cefTRIAXone 1,000 MG in sodium chloride 0.9% (plus) 50 ML 100 MG IV (13:51)
[2023-07-31 14:04] LABS: Troponin(5th) Baseline 24 ng/L (0-15)
[2023-07-31 14:21] LABS: Alanine Aminotransferase 15 U/L (0-41); Albumin Level 3.9 g/dL (3.5-5.2); Alkaline Phosphatase 93 U/L (40-130); Anion Gap 12.9 (5-19); Aspartate Amino Transferase 19 U/L (0-40); Blood Urea Nitrogen 23 mg/dL (8-23); Calcium 8.8 mg/dL (8.5-10.5); Carbon Dioxide 32 mmol/L (22-29); Chloride 103 mmol/L (98-107); Creatinine Clr Calc Pharmacy 73.5272; Globulin 3.1 g/dL (1.3-4.6); Glomerular Filtration Rate 59.9 mL/min (90-130); Glucose 96 mg/dL (65-115); NT Pro B Type Natriuretic Pept 1337 pg/mL (0-125); Osmolality Calculated 300 mOsm/kg (285-295); Potassium 4.9 mmol/L (3.5-5.1); Sodium 143 mmol/L (136-145); Total Bilirubin 0.8 mg/dL (0.15-1.2)
[2023-07-31 15:00] VITALS: BP 124/61; PULSE 91; O2SAT 94
--- NOTE | 2023-07-31 15:11 | W.ED.SOB ---
HPI - SOB/Dyspnea General: Chief Complaint: Shortness of Breath/Dyspnea Stated Complaint: PULSE DROPPED Time Seen by Provider: 07/31/23 13:26 History of Present Illness: HPI Narrative: 72-year-old male with history of lung cancer status post left lung resection, atrial fibrillation on Xarelto, COPD, TERRY on BiPAP at night, chronic hypoxemic respiratory failure on as needed oxygen and morbid obesity who presents to the emergency room from clinic after he had an episode of bradycardia and near syncope. He says this happened after he took an albuterol treatment there. He was tested for strep and found to be positive. He was therefore sore throat and some ear pain. Mild time he arrives here in the emergency room he is normotensive and in A-fib with controlled rate. No chest pain currently. No altered mental status. No focal motor deficits. No fevers. No cough. No abdominal pain. He believes he had a reaction to the albuterol they gave him in the clinic. Review of Systems Narrative: Constitutional symptoms: Negative except as documented in HPI. Skin symptoms: Negative except as documented in HPI. Eye symptoms: Negative except as documented in HPI. ENMT symptoms: Negative except as documented in HPI. Respiratory symptoms: Negative except as documented in HPI. Cardiovascular symptoms: Negative except as documented in HPI. Gastrointestinal symptoms: Negative except as documented in HPI. Genitourinary symptoms: Negative except as documented in HPI. Musculoskeletal symptoms: Negative except as documented in HPI. Neurologic symptoms: Negative except as documented in HPI. Psychiatric symptoms: Negative except as documented in HPI. Endocrine symptoms: Negative except as documented in HPI. [facility] ED PFSH: Medical History (Updated 07/31/23 @ 16:29 by Basia Jasso MD) Enrolled in chronic care management Diverticulosis Hyperlipidemia Obstructive sleep apnea treated with BiPAP COPD (chronic obstructive pulmonary disease) History of lung cancer Surgical History History of esophagogastroduodenoscopy (EGD) Hx of colonoscopy 2007 History of pneumonectomy H/O arthroscopic knee surgery Family History Family/Other Myocardial infarction Stroke Hypertension Grandmother Stroke Other Cancer Social History Smoking and tobacco/nicotine status: former use of tobacco/nicotine Quit status (tobacco/nicotine): has quit using Year quit tobacco: 2002 Former quit date comment: 1.5-2ppd x 30 years Second hand smoke exposure: Yes Alcohol intake: current Alcohol intake frequency: holidays/special occasions only Substance/Drug Use: never Household members: spouse Marital status: Physical Exam Narrative: EXAM NARRATIVE: General: Alert, no acute distress. Skin: Warm, dry. Head: Normocephalic, atraumatic. Neck: Supple, trachea midline. Eye: Extraocular movements are intact. Ears, nose, mouth and throat: mucosa moist. Cardiovascular: Irregularly irregular, Normal peripheral perfusion. Respiratory: Lungs are clear to auscultation, respirations are non-labored, breath sounds are equal, Symmetrical chest wall expansion. Gastrointestinal: Soft, Nontender, Non distended, Normal bowel sounds. Musculoskeletal: Normal ROM, no deformity. Neurological: Alert and oriented, No focal neurological deficit observed. Psychiatric: Cooperative, appropriate mood & affect. Course Vital Signs: Vital signs: Vital Signs Temperature 97.8 F 07/31/23 13:25 Pulse Rate 83 07/31/23 16:00 Respiratory Rate 16 07/31/23 13:25 Blood Pressure 122/84 07/31/23 16:00 Pulse Oximetry 93 07/31/23 16:00 Oxygen Delivery Me thod Nasal Cannula 07/31/23 16:00 Oxygen Flow Rate 2 07/31/23 16:00 MDM - SOB/Dyspnea Medical Decision Making Medical decision making: Differential diagnosis including but not limited to and based on the above HPI, review of systems and physical exam: Patient had a bradycardic event. Most likely this was a vasovagal event. Perhaps could have been a reaction to the medication. Will rule out acute coronary syndrome. Monitor EKG and cardiac monitoring. Orders placed to evaluate differential diagnosis based on the above differential, HPI and physical exam Lab Review: Laboratory results were reviewed and interpreted by myself the emergency room physician. Lab work is unremarkable. BUN and creatinine are 23 and 1.2 which is near his baseline. He is not anemic with a hemoglobin of 15.9. Troponin is 22 and does not change. Chest x-ray: Stable opacification of the left lung from pneumonectomy. No infiltrate on the right side.. This was reviewed and interpreted by myself the ER physician. EKG: Time 1541. Rate 94. Atrial fibrillation. Controlled rate. Right bundle branch block, No ST-T changes, no ectopy, This was reviewed and interpreted by myself the ER physician at 1545 I reviewed the patient's medical record. Reexamination: Reexamination of the patient he remains in A-fib with a controlled rate. He has no increased work of breathing. He had no further bradycardia. No altered mental status. We discussed going home or observation he prefers to go home Assessment and plan: Vasovagal event Bradycardia Atrial fibrillation Streptococcal pharyngitis -Patient received Rocephin in the emergency room. -Patient has remained stable here, I suspect he either had a vasovagal event or bradycardia secondary to his breathing treatment which is paradoxical but possible I guess. - Discharged home - Discussed findings and plan with patient. Answered any questions. - All laboratory values were reviewed and interpreted personally by myself, the ER physician - All imaging was reviewed and interpreted personally by myself, the ER physician. - Evaluation and treatment of this problem were appropriate in the emergency setting Lab Data 07/31/23 13:40 07/31/23 13:40 Labs/Radiology: Radiology Impressions Chest X-Ray 07/31/23 13:31 IMPRESSION: 1. Right lung is grossly clear. If there is clinical concern for acute mediastinal pathology, consider correlation with CT. Laboratory Results WBC 8.48 10^3/uL (3.29-11.43) 07/31/23 13:40 RBC 5.13 10^6/uL (3.85-5.65) 07/31/23 13:40 Hgb 15.90 g/dL (11.27-16.99) 07/31/23 13:40 Hct 50.5 % (37-53) 07/31/23 13:40 MCV 98.4 fl (82-101) 07/31/23 13:40 MCH 31.0 pg (27-33) 07/31/23 13:40 MCHC 31.5 g/dL (30-55) 07/31/23 13:40 RDW 13.7 % (12.1-15.1) 07/31/23 13:40 Plt Count 182 10^3/cmm (157-399) 07/31/23 13:40 MPV 9.9 fL (7.4-10.4) 07/31/23 13:40 Neut % (Auto) 77.7 % 07/31/23 13:40 Lymph % (Auto) 9.7 % 07/31/23 13:40 Parmer % (Auto) 10.1 % 07/31/23 13:40 Eos % (Auto) 1.8 % 07/31/23 13:40 Baso % (Auto) 0.5 % 07/31/23 13:40 Neut # (Auto) 6.59 10^3/uL (1.8-7.7) 07/31/23 13:40 Lymph # (Auto) 0.8 10^3/uL (0.8-4.8) 07/31/23 13:40 Parmer # (Auto) 0.9 10^3/uL (0.2-0.9) 07/31/23 13:40 Eos # (Auto) 0.2 10^3/uL (0.0-0.8) 07/31/23 13:40 Baso # (Auto) 0.0 10^3/uL (0.0-0.1) 07/31/23 13:40 Nucleated RBC % (auto) 0 % 07/31/23 13:40 Nucleated RBCs # 0.0 /100WBC 07/31/23 13:40 Specimen Type Arterial 07/31/23 13:33 Sample Site Radial, right 07/31/23 13:33 ABG pH 7.32 (7.35-7.45) L 07/31/23 13:33 ABG pCO2 61.2 mmHg (35-45) H* 07/31/23 13:33 ABG pO2 115.0 mmHg (80.0-100.0) H 07/31/23 13:33 ABG HCO3 31.6 mmol/L (22-26) H 07/31/23 13:33 ABG O2 Saturation 99.2 07/31/23 13:33 ABG Base Excess 3.3 mmol/L (-2.0-2.0) H 07/31/23 13:33 Josh Test Pos 07/31/23 13:33 A-a O2 Gradient Not Reportable 07/31/23 13:33 Hematocrit 50.6 % (42-52) 07/31/23 13:33 Hgb O2 Saturation 96.6 % (95-100) 07/31/23 13:33 Carboxyhemoglobin 2.0 %THgb (0.4-20.1) 07/31/23 13:33 Methemoglobin 0.6 % (0.4-1.5) 07/31/23 13:33 Total Hemoglobin 16.5 g/dL (14-18) 07/31/23 13:33 Sodium 145.0 mmol/L (131-143) H 07/31/23 13:33 Potassium 4.2 mmol/L (3.5-5.0) 07/31/23 13:33 Glucose 97.0 mg/dL (70-115) 07/31/23 13:33 Ionized Calcium 1.2 mmol/L (1.1-1.4) 07/31/23 13:33 O2 Delivery Device Nc 07/31/23 13:33 O2 Liters/Min 3.0 % 07/31/23 13:33 Postal Inspector ID [place] 07/31/23 13:33 Sodium 143 mmol/L (136-145) 07/31/23 13:40 Potassium 4.9 mmol/L (3.5-5.1) 07/31/23 13:40 Chloride 103 mmol/L (98-107) 07/31/23 13:40 Carbon Dioxide 32 mmol/L (22-29) H 07/31/23 13:40 Anion Gap 12.9 (5-19) 07/31/23 13:40 BUN 23 mg/dL (8-23) 07/31/23 13:40 Creatinine 1.2 mg/dL (0.7-1.2) 07/31/23 13:40 GFR Calculation 59.9 mL/min (90-130) L 07/31/23 13:40 Glucose 96 mg/dL (65-115) 07/31/23 13:40 Calculated Osmolality 300 mOsm/kg (285-295) H 07/31/23 13:40 Calcium 8.8 mg/dL (8.5-10.5) 07/31/23 13:40 Total Bilirubin 0.8 mg/dL (0.15-1.2) 07/31/23 13:40 AST 19 U/L (0-40) 07/31/23 13:40 ALT 15 U/L (0-41) 07/31/23 13:40 Alkaline Phosphatase 93 U/L (40-130) 07/31/23 13:40 Troponin T Baseline 24 ng/L (0-15) H 07/31/23 13:40 Troponin T 120 Minute 22.52 ng/L (0-15) H 07/31/23 15:37 Delta Troponin T -1.48 ABS# (0-10) L 07/31/23 15:37 NT-Pro-B Natriuret Pep 1337 pg/mL (0-125) H 07/31/23 13:40 Total Protein 7.0 g/dL (6.6-8.7) 07/31/23 13:40 Albumin 3.9 g/dL (3.5-5.2) 07/31/23 13:40 Globulin 3.1 g/dL (1.3-4.6) 07/31/23 13:40 No radiology studies performed this visit Discharge Plan Discharge Patient Disposition: Home Clinical Impression: Bradycardia, Acute streptococcal pharyngitis Condition: Stable Prescriptions: New cefdinir 300 mg capsule 300 mg PO BID 10 Days Qty: 20 0RF No Action aspirin [Adult Low Dose Aspirin] 81 mg tablet,delayed release (DR/EC) 81 mg PO QDAY testosterone cypionate 200 mg/mL kit 200 mg IM .monthly Qty: 1 5RF furosemide 40 mg tablet 40 mg PO DAILY Qty: 90 3RF potassium chloride 20 mEq tablet extended release 20 meq PO DAILY Qty: 90 2RF Trelegy Ellipta 100-62.5-25 mcg blister with device 1 inh INHALATION QDAY Qty: 180 3RF albuterol sulfate [Ventolin HFA] 90 mcg/actuation HFA aerosol inhaler 2 puff INHALATION QID PRN (Reason: shortness of breath or wheezing) Qty: 8.5 3RF mupirocin 2 % ointment 1 applic topical BID Qty: 22 0RF multivitamin Tablet 1 tab PO QPM valsartan 320 mg tablet 320 mg PO QAM Singulair 10 mg tablet 10 mg PO QPM Xarelto 20 mg tablet 20 mg PO QPM Rx Instructions: must administer with evening meal Discharge Orders: Discharge ED (Routine); Ordered 07/31/23 Ordered By: Basia Jasso Referrals: Nelsy Rivas MD [Primary Care Provider] - 4-7 days Patient Instructions: Strep Throat (ED), Bradycardia (ED) Activity Restrictions/Additional Instructions: Thank you for choosing [facility] for your healthcare needs today. Please realize this is an emergency room and that we are providing you with a medical screening exam and this may not be complete and all inclusive of all the testing and or work up that you may need to determine your ailment or severity of your illness. You have been screened and evaluated and felt safe for discharge. Health conditions do change or evolve sometimes and as such it is important that you follow up with your Primary Doctor to be re checked, 3-5 days is a general good time frame for follow up. You are always welcome to return to the ED for re assessment if your symptoms are worsening or you have new concerns Coding Level of Care Code ED Engineer Technician for Susan Kauffman
[2023-07-31 15:30] VITALS: BP 129/91; PULSE 79; O2SAT 96
--- NOTE | 2023-07-31 15:31 | ECG_ITS ---
[facility] Test Date: 2023-07-31 Pat Name: Son Petersen Department: Room: Gender: Male Stenotypist: : 1950 Requested By: Basia Weiss Order Number: [id number] Aislinn MD: Shanta Lainez M.D. Measurements Intervals [place] Rate: 94 P: 0 UT: 0 QRS: 81 QRSD: 128 T: -14 QT: 371 QTc: 465 Interpretive Statements ATRIAL FIBRILLATION RIGHT BUNDLE BRANCH BLOCK [120+ ms QRS DURATION, UPRIGHT V1, 40+ ms S IN I/aVL/V4/V5/V6] Compared to ECG 07/31/2023 13:26:54 No significant changes Electronically Signed On 08-01-2023 0:33:48 CDT by Shanta Lainez M.D. [id number]
[2023-07-31 16:00] VITALS: BP 122/84; PULSE 83; O2SAT 93
[2023-07-31 16:04] LABS: Troponin 5 2HR 22.52 ng/L (0-15)
[2023-07-31 16:07] LABS: Troponin 5 2HR Delta -1.48 ABS# (0-10)
[2023-07-31] MEDS: HYDROcodone-acetaminophen 10-325 mg Tablet 1 TAB PO (16:23)
[2023-07-31 17:25] VITALS: BP 139/81; PULSE 85; O2SAT 91
== END 2023-07-31 17:37 | disposition home or self-care (01) ==
PROVIDERS: Emergency Provider Emergency Medicine; PCP Family Medicine
DX: J02.0 Streptococcal pharyngitis (principal); R00.1 Bradycardia, unspecified
CPT/HCPCS: 36415; 36600; 71045; 80051; 80053; 82330; 82805; 83880; 84484; 85025; 93005; 96365; 96375; 99285; J0696; J2919

== ENCOUNTER → 2023-08-27 12:27 | Outpatient (BNVA) | payer MEDICARE, SELFPAY | PROVIDERS: PCP Family Medicine; Visit Provider Internal Medicine Cardiovascular Disease | DX: J44.9 Chronic obstructive pulmonary disease, unspecified (principal); Z85.118 Personal history of other malignant neoplasm of bronchus and lung; E78.5 Hyperlipidemia, unspecified; R06.00 Dyspnea, unspecified; Z87.891 Personal history of nicotine dependence; I10 Essential (primary) hypertension; Z78.9 Other specified health status; Z98.890 Other specified postprocedural states; Z90.2 Acquired absence of lung [part of]; J44.1 Chronic obstructive pulmonary disease with (acute) exacerbation; G47.33 Obstructive sleep apnea (adult) (pediatric) | CPT/HCPCS: 99214 ==

== ENCOUNTER → 2024-01-28 12:15 | Outpatient (BNVA) | payer MEDICARE, SELFPAY | PROVIDERS: PCP Nurse Practitioner Family; Visit Provider Nurse Practitioner Family | DX: R79.89 Other specified abnormal findings of blood chemistry (principal); E78.5 Hyperlipidemia, unspecified | CPT/HCPCS: 80053; 80061; 84403; 85025 ==

== ENCOUNTER → 2024-02-25 14:15 | Outpatient (BNVA) | payer MEDICARE, SELFPAY | PROVIDERS: PCP Nurse Practitioner Family; Visit Provider Internal Medicine Cardiovascular Disease | DX: I11.0 Hypertensive heart disease with heart failure (principal); I50.9 Heart failure, unspecified; Z85.118 Personal history of other malignant neoplasm of bronchus and lung; J44.9 Chronic obstructive pulmonary disease, unspecified; E66.9 Obesity, unspecified; Z68.41 Body mass index [BMI] 40.0-44.9, adult; G47.33 Obstructive sleep apnea (adult) (pediatric); Z79.01 Long term (current) use of anticoagulants; Z87.891 Personal history of nicotine dependence | CPT/HCPCS: 99214 ==

== ENCOUNTER → 2024-08-19 14:56 | Outpatient (BNVA) | payer MEDICARE, SELFPAY | PROVIDERS: PCP Nurse Practitioner Family; Visit Provider Nurse Practitioner Family | DX: M25.551 Pain in right hip (principal); G89.29 Other chronic pain; E78.5 Hyperlipidemia, unspecified; I10 Essential (primary) hypertension; R79.89 Other specified abnormal findings of blood chemistry; R07.89 Other chest pain; R53.83 Other fatigue | CPT/HCPCS: 80053; 80061; 82040; 84270; 84403; 84443; 85025; 86618; 86666; 86757 ==

== ENCOUNTER 2024-11-11 15:30 | Outpatient (CLI) | payer MEDICARE, SELFPAY ==
--- NOTE | 2024-11-11 15:30 | USR_ITS ---
PROCEDURE INFORMATION: Exam: US Duplex Left Lower Extremity Veins, Limited Exam date and time: 11/11/2024 3:47 PM Age: 73 years old Clinical indication: Edema, localized; Lower extremity, left; Additional info: M79.89 - other specified soft tissue disorders TECHNIQUE: Imaging protocol: Real-time duplex ultrasound of the left extremity with 2-D velázquez scale, color Doppler flow and spectral waveform analysis including responses to compression and other maneuvers (when performed) with image documentation. Limited exam focused on the left lower extremity veins. COMPARISON: No relevant prior studies available. FINDINGS: Left deep veins: Unremarkable. The common femoral, femoral, proximal profunda femoral and popliteal veins are patent without thrombus. Normal Doppler waveforms. Normal compressibility and/or augmentation response. Superficial veins: Greater saphenous vein at the saphenofemoral junction is patent without thrombus. Soft tissues: There is edema in the subcutaneous tissues. US/CV venous duplex [facility] [id number] IMPRESSION: No evidence of deep vein thrombosis. Subcutaneous edema is present.
== END 2024-11-11 15:31 | disposition home or self-care (01) ==
LOC: RAD 15:32
PROVIDERS: PCP Nurse Practitioner Family; Visit Provider Nurse Practitioner Family
DX: M79.89 Other specified soft tissue disorders (principal); L03.90 Cellulitis, unspecified
CPT/HCPCS: 80053; 85025; 93971